=== PATIENT | male | born 1945 | race Caucasian/White ===

== ENCOUNTER 2023-01-14 14:27 | Emergency (ER) | payer OTHER, SELFPAY ==
[2023-01-14] VITALS (13 sets, daily range): BP systolic 113–156; BP diastolic 66–83; PULSE 57–67; RESP 14–22; TEMP 36.9; O2SAT 91–96; BMI 31.2
--- NOTE | 2023-01-14 14:44 | DI.RAD.S_ITS ---
PROCEDURE: XR CHEST 1V INDICATIONS: chest pain TECHNIQUE: One view of the chest was acquired. COMPARISON: None. FINDINGS: Surgical changes and devices: None. Lungs and pleura: Lungs are clear. No pleural effusions or pneumothorax. Mediastinum: The cardiac contours are within normal limits. The aorta demonstrates calcification and tortuosity. Bones and chest wall: Age-appropriate bony degenerative changes are seen. No suspicious bony lesions. Overlying soft tissues appear unremarkable. IMPRESSION: Portable chest within normal limits for age. Dictated by: Saul Barry M.D. on 01/14/2023 at 15:15 Approved by: Saul Barry M.D. on 01/14/2023 at 15:15
[2023-01-14 15:55] LABS: Add Manual Diff / Slide Review NO; Basophils Absolute Auto 100 /uL (0-100); Basophils Percent Auto 0.8 % (0-2); Eosinophils Absolute Auto 800 /uL (0-450); Eosinophils Percent Auto 8.9 % (2-4); Hematocrit 43.4 % (41-53); Hemoglobin 14.9 g/dL (13.5-17.5); Lymphocytes Absolute Auto 3600 /uL (1100-4500); Lymphocytes Percent Auto 38.6 % (25-40); Mean Corpuscular HGB Conc 34.3 % (30-36); Mean Corpuscular Hemoglobin 31.5 PG (26-34); Mean Corpuscular Volume 91.9 fL (80-100); Monocytes Absolute Auto 700 /uL (0-900); Monocytes Percent Auto 7.4 % (3-14); Neutrophils Absolute Auto 4200 /uL (1500-7000); Neutrophils Percent Auto 44.3 % (50-75); Platelet Count 153 X10^3/uL (150-400); Red Blood Cell Count 4.72 X10^6/uL (4.5-5.9); Red Cell Distribution Width 14.3 % (11.6-14.8); White Blood Cell Count 9.5 X10^3/uL (4.5-11.0)
[2023-01-14 16:17] LABS: Prothrombin Time 11.7 SECONDS (10.1-12.7)
[2023-01-14 16:20] LABS: PTT Partial Thromboplastin Tim 26 SECONDS (26-36)
[2023-01-14 16:22] LABS: Alanine Aminotransferase 32 IU/L (<50); Albumin 4.3 g/dL (3.5-5.0); Albumin Globulin Ratio 1.3 (1.0-2.8); Alkaline Phosphatase 60 U/L (38-126); Aspartate Aminotransferase 39 IU/L (17-59); BUN Creatinine Ratio 23.8 (6-22); Bilirubin Total 1.1 mg/dL (0.2-1.3); Blood Urea Nitrogen 34 mg/dL (9-20); Calcium 10.1 mg/dL (8.4-10.2); Carbon Dioxide 23 mmol/L (22-32); Chloride 103 mmol/L (98-107); Creatine Kinase 759 U/L (55-170); Estimated Glomerular Filt Rate 51 mL/min (>60); Globulin 3.2 g/dL (1.7-4.1); Glucose 117 mg/dL (80-110); HEMOLYSIS < 15 (0-50); Lipase 115 U/L (23-300); Potassium 3.8 mmol/L (3.4-5.1); Sodium 137 mmol/L (137-145); Total Protein 7.5 g/dL (6.3-8.2)
[2023-01-14 16:33] LABS: Troponin I < 0.012 ng/mL (0.01-0.034)
--- NOTE | 2023-01-14 18:09 | ED.DIZZY ---
HPI - Dizziness General Chief Complaint: Dizziness Stated Complaint: sent by wi/low BP/high HR Time Seen by Provider: 01/14/23 17:26 Source: patient Mode of arrival: Family Vehicle Limitations: no limitations History of Present Illness HPI Narrative: This is a 77-year-old male with history of hypertension, dyslipidemia, gout who presents with low blood pressures and high hurts at home. Patient states started yesterday he is had occasional episodes on and off in the past. He states he just feels tired and worn out. He states he is had low blood pressures before he did not normally check his heart rate with them. He states started yesterday has gone into today. No syncope but has felt lightheaded at times. No chest pain or shortness of breath. He states he got very sweaty yesterday because he was doing a lot outdoor work crawling underneath the house some pulling out small trees and debris. Patient states no nausea no vomiting, no issues with bowel movements such as diarrhea or constipation. No dysuria urgency or frequency, no dark urine. No swelling in extremities. No fevers or chills. Patient states he normally takes atorvastatin, allopurinol lisinopril daily. He did decreased to a half dose of lisinopril yesterday. Does have a history of bladder cancer had treatment for that remotely. Denies any drug allergies. No tobacco, alcohol or illicit. Primary care is through Dr. Raquel Medina. Patient lives in [place]. Related Data Allergies Allergy/AdvReac Type Severity Reaction Status Date / Time No Known Drug Allergies Allergy Verified 01/14/23 14:50 Review of Systems Review of Systems ROS Unobtainable: All systems reviewed & are unremarkable except as noted in HPI and below Patient History Social History Smoking Status: Never smoker Smoking Status: Never smoker alcohol intake frequency: 0-2 drinks per day Substance Use Type: does not use Exam Narrative Exam Narrative: GENERAL: Alert and oriented x three, male in mild distress. HEENT: Head normocephalic, atraumatic, EOMI, pupils reactive, face symmetric, moist mucous membranes NECK: Supple, full range of motion CARDIOVASCULAR: Regular rate and rhythm without murmurs, rubs or gallops. No JVD. No swelling bilateral lower extremities. RESPIRATORY: Breath sounds equal bilaterally, no wheezes rales or rhonchi. No tachypnea or accessory muscle use. ABDOMEN: Soft, nontender. Normoactive bowel sounds all 4 quadrants. No guarding or rebound, rigidity, no mass : No CVA tenderness EXTREMITIES: Normal range of motion, no clubbing or edema. Neurovascularly intact NEUROLOGICAL: Cranial nerves II through XII grossly intact. Moving all extremities SKIN: Warm, dry, no petechiae, no rashes or lesions. Initial Vital Signs Initial Vital Signs: Vital Signs Temperature 98.5 F 01/14/23 14:45 Pulse Rate 67 01/14/23 14:45 Respiratory Rate 15 01/14/23 14:45 Blood Pressure 133/66 01/14/23 14:45 Pulse Oximetry 96 01/14/23 14:45 Oxygen Delivery Method Room Air 01/14/23 14:45 Course Orders Ordered: Discontinued Medications Aspirin (Aspirin 81 Mg Chew Tab) 324 mg PO NOW ONE Stop: 01/14/23 14:45 Last Admin: 01/14/23 18:25 Dose: Not Given Documented By: NR Sodium Chloride (Normal Saline 0.9%) 1,000 mls @ 1,000 mls/hr IV BOLUS ONE Stop: 01/14/23 19:10 Last Infusion: 01/14/23 19:20 Dose: 0 mls/hr Documented By: Admin: 01/14/23 18:30 Dose: 1,000 mls/hr Documented By: NR Vital Signs Vital signs: Vital Signs - 8 hr 01/14/23 14:45 01/14/23 17:27 01/14/23 17:30 Temperature 98.5 F Pulse Rate 67 66 Respiratory Rate 15 Blood Pressure 133/66 113/70 Pulse Oximetry 96 91 Oxygen Delivery Method Room Air 01/14/23 17:30 01/14/23 18:00 01/14/23 18:00 Temperature Pulse Rate 64 60 Respiratory Rate 15 16 Blood Pressure 116/68 Pulse Oximetry 92 93 Oxygen Delivery Method 01/14/23 18:18 01/14/23 18:18 Temperature Pulse Rate 64 Respiratory Rate 22 Blood Pressure 142/76 H Pulse Oximetry 91 Oxygen Delivery Method MDM - Dizziness Lab Data 01/14/23 15:40 01/14/23 16:00 Labs: Lab Results 08/27/23 08/27/23 08/27/23 Range/Units 15:40 16:00 16:00 WBC 9.5 (4.5-11.0) X10^3/uL RBC 4.72 (4.5-5.9) X10^6/uL Hgb 14.9 (13.5-17.5) g/dL Hct 43.4 (41-53) % MCV 91.9 (80-100) fL MCH 31.5 (26-34) PG MCHC 34.3 (30-36) % RDW 14.3 (11.6-14.8) % Plt Count 153 (150-400) X10^3/uL Neut % (Auto) 44.3 L (50-75) % Lymph % (Auto) 38.6 (25-40) % [place] % (Auto) 7.4 (3-14) % Eos % (Auto) 8.9 H (2-4) % Baso % (Auto) 0.8 (0-2) % Neut # (Auto) 4200 (8047-5559) /uL Lymph # (Auto) 3600 (0309-4380) /uL [place] # (Auto) 700 (0-900) /uL Eos # (Auto) 800 H (0-450) /uL Baso # (Auto) 100 (0-100) /uL PT 11.7 (10.1-12.7) SECONDS INR 1.0 (0.9-1.3) APTT 26 (26-36) SECONDS Sodium 137 (137-145) mmol/L Potassium 3.8 (3.4-5.1) mmol/L Chloride 103 (98-107) mmol/L Carbon Dioxide 23 (22-32) mmol/L BUN 34 H (9-20) mg/dL Creatinine 1.43 H (0.66-1.25) mg/dL Estimated GFR 51 L (>60) mL/min BUN/Creatinine Ratio 23.8 H (6-22) Glucose 117 H (80-110) mg/dL Calcium 10.1 (8.4-10.2) mg/dL Magnesium 2.0 (1.6-2.3) mg/dL Total Bilirubin 1.1 (0.2-1.3) mg/dL AST 39 (17-59) IU/L ALT 32 (<50) IU/L Alkaline Phosphatase 60 (38-126) U/L Total Creatine Kinase 759 H (55-170) U/L Troponin I < 0.012 (0.01-0.034) ng/mL Total Protein 7.5 (6.3-8.2) g/dL Albumin 4.3 (3.5-5.0) g/dL Globulin 3.2 (1.7-4.1) g/dL Albumin/Globulin Ratio 1.3 (1.0-2.8) Lipase 115 (23-300) U/L Urine Dip Bedside Urine Glucose Negative Bedside Urine Bilirubin - Negative Bedside Urine Ketone - Negative Urine Specific [place] 1.020 Bedside Urine Occult Blood - Negative Bedside Urine pH 5.5 Bedside Urine Protein - Negative Bedside Urine Urobilinogen - Negative Bedside Urine Nitrite - Negative Bedside Urine Leukocytes - Negative Esterase ECG Data Attestation: I personally reviewed and interpreted this ECG as follows: Interpretation: Sinus rhythm occasional PVC, rate of 66 NC 200 QRS of 112 and QTC 454. No acute ST elevation or depression appreciated. MDM Narrative Medical decision making narrative: 77-year-old male who was very active yesterday working underneath his house. Patient has been checking his blood pressure since yesterday noted his he had low blood pressures and intermittently elevated heart rate. Patient has list he has had pressures ranging from 120s to 90s systolic and occasionally a heart rate in the 1 teens but typically in the 90s. CBC shows a hemoglobin of 14 with a crit of 43, white count of 9.5 and platelets of 150 3- coags. Electrolytes are normal range BUN 34 with a creatinine of 1.43. Patient's is able to look up his old labs he would a creatinine of 1.1 in August. Glucose is 117 LFTs are negative, troponins negative and CK is 759. EKG shows no acute changes. Suspect some dehydration causing acute kidney injury. Discussed with patient given a L fluids, orthostatics and urine sample shows no acute change. Patient feels much improved after fluids. Blood pressures in the 150s. Discussed with patient plan for follow-up, have his creatinine rechecked he is going to hold his lisinopril for the next day or so unless blood pressures are quite high. Discharge Plan Departure Patient Disposition: Home Clinical Impression: Dehydration, USHA (acute kidney injury) Activity Restrictions/Additional Instructions: Please follow up with your physician for recheck. Your creatinine or lab testing renal function is elevated from your most recent in August. Please follow-up with your physician to have this rechecked today your creatinine is 1.43 and your BUN was elevated at 34 suggesting that you are dehydrated today. Please continue to drink plenty of fluids. I would continue to hold your lisinopril for the next day. If blood pressures have improved and you feel much better you can go ahead and restart it. Please return if you are having new or worsening changes, increasing lightheadedness, passing out, new chest pain, shortness of breath, abdominal back or flank pain, dark bloody urine, or other new or concerning changes Referrals: Miscellaneous,Doctor, MD [Primary Care Provider] - Stand Alone Forms: Patient Portal/API
[2023-01-14] MEDS: SODIUM CHLORIDE 0.9% 1,000 ML 1000 ML IV (18:30)
== END 2023-01-14 19:50 | disposition home or self-care (01) ==
PROVIDERS: Emergency Medicine; Emergency Provider Emergency Medicine
DX: E86.0 Dehydration (principal); N17.9 Acute kidney failure, unspecified; R03.1 Nonspecific low blood-pressure reading; I49.3 Ventricular premature depolarization
CPT/HCPCS: 36415; 71045; 80053; 81003; 82550; 83690; 83735; 84484; 85025; 85610; 85730; 93005; 96360; 99284

== ENCOUNTER → 2023-03-20 15:19 | Outpatient (CLI) | payer OTHER, SELFPAY ==
--- NOTE | 2023-03-20 | DI.US.S_ITS ---
PROCEDURE: US CAROTID DOPPLER BI INDICATIONS: HYPERTENSION TECHNIQUE: Color and pulse Doppler interrogation was performed of both carotid systems, with image documentation and velocity measurements. COMPARISON: None. FINDINGS: Stenosis calculations are based on SRU (Society of Radi[employer] in Ultras[employer]) criteria. The flow velocities and the arterial waveforms are normal within both carotid arterial systems. Atherosclerotic plaque is seen on both sides. The estimated degree of internal carotid artery stenosis is less than 50%. Antegrade flow is confirmed within both vertebral arteries. IMPRESSION: No hemodynamically significant stenosis is seen. Atherosclerotic plaque is noted bilaterally. Dictated by: Saul Barry M.D. on 03/20/2023 at 17:58 Approved by: Saul Barry M.D. on 03/20/2023 at 17:58
== END ==
PROVIDERS: Referring Provider Family Medicine; Visit Provider Family Medicine
DX: I65.23 Occlusion and stenosis of bilateral carotid arteries (principal); I10 Essential (primary) hypertension; I49.3 Ventricular premature depolarization; R94.31 Abnormal electrocardiogram [ECG] [EKG]; R42 Dizziness and giddiness
CPT/HCPCS: 93880